=== PATIENT | female | born 1970 | race Caucasian/White ===

== ENCOUNTER 2017-07-15 12:02 | Emergency (ER) | payer SELFPAY ==
[2017-07-15 12:02] VITALS: BMI 25.7
[2017-07-15 12:27] VITALS: TEMP 97.6
--- NOTE | 2017-07-15 12:38 | C.PDOC ---
Time Seen by Provider: 07/15/17 12:32 Chief Complaint (Nursing): Headache Past Medical History Vital Signs: Last Vital Signs Temp 97.6 F 07/15/17 12:26 Pulse 87 07/15/17 12:26 Resp 20 07/15/17 12:26 BP 124/81 07/15/17 12:26 Pulse Ox 100 07/15/17 12:26 - Medical History PMH: Asthma, HTN Denies: Chronic Kidney Disease - [facility] Procedures LOCAL EXCIS BREAST LES (06/09/15) Family History: States: Unknown Family Hx - Social History Hx Alcohol Use: No Hx Substance Use: No - Immunization History Hx Tetanus Toxoid Vaccination: No Hx Influenza Vaccination: No Hx Pneumococcal Vaccination: No ED Course And Treatment O2 Sat by Pulse Oximetry: 100 Disposition - Disposition Forms: [employer] (Sudanese)
--- NOTE | 2017-07-15 12:44 | C.PDOC ---
History Of Present Illness 47 year old female presents to the ED with complaints of "head to toe pain" for three days. Patient denies fever, nausea, vomiting, diarrhea, chest pain, cough , or shortness of breath. Time Seen by Provider: 07/15/17 12:32 Chief Complaint (Nursing): Headache History Per: Patient History/Exam Limitations: no limitations Onset/Duration Of Symptoms: Days (3 days ) Current Symptoms Are (Timing): Still Present Recent travel outside of the [place]: No Additional History Per: Family Past Medical History Reviewed: Historical Data, Nursing Documentation, Vital Signs Vital Signs: Last Vital Signs Temp 97.6 F 07/15/17 12:26 Pulse 75 07/15/17 15:07 Resp 18 07/15/17 15:07 BP 120/72 07/15/17 15:07 Pulse Ox 100 07/15/17 15:31 - Medical History PMH: Asthma, HTN - [facility] Procedures LOCAL EXCIS BREAST LES (06/09/15) Family History: States: Unknown Family Hx - Social History Hx Alcohol Use: No Hx Substance Use: No - Immunization History Hx Tetanus Toxoid Vaccination: No Hx Influenza Vaccination: No Hx Pneumococcal Vaccination: No Review Of Systems Constitutional: Negative for: Fever, Chills Cardiovascular: Negative for: Chest Pain, Palpitations Respiratory: Negative for: Cough, Shortness of Breath Gastrointestinal: Positive for: Abdominal Pain. Negative for: Nausea, Vomiting , Diarrhea Musculoskeletal: Positive for: Back Pain, Leg Pain (bilateral leg pain ) Neurological: Positive for: Headache. Negative for: Numbness, Dizziness Physical Exam - Physical Exam Appears: Non-toxic, No Acute Distress Skin: Warm, Dry Head: Atraumatic, Normacephalic Eye(s): bilateral: Normal Inspection, PERRL, EOMI Oral Mucosa: Moist Neck: Supple Chest: Symmetrical, No Deformity Cardiovascular: Rhythm Regular, No Murmur Respiratory: Normal Breath Sounds, No Rales, No Rhonchi, No Wheezing Gastrointestinal/Abdominal: Soft, No Tenderness, No Distention, No Guarding, No Rebound Back: No CVA Tenderness, No Vertebral Tenderness, No Paraspinal Tenderness Extremity: Normal ROM, No Tenderness Neurological/Psych: Oriented x3, Normal Speech, Normal Cognition, Normal Motor, Normal Sensation Gait: Steady ED Course And Treatment O2 Sat by Pulse Oximetry: 100 (room air ) Pulse Ox Interpretation: Normal Progress Note: Patient was given Tylenol and Toradol. Reevaluation Time: 14:37 Reassessment Condition: Improved (CO TAILBONE PAIN. NO TRAUMA. NONTEND. LIMITED ROM BACK DUE TO PAIN. NO FEVER, NVD. NSAIDS, FU CLINIC) Disposition Counseled Patient/Family Regarding: Studies Performed, Diagnosis, Need For Followup, Rx Given - Disposition Referrals: Clinic,Med Surg [Primary Care Provider] - Disposition: HOME/ ROUTINE Disposition Time: 14:38 Condition: IMPROVED Prescriptions: Acetaminophen [Tylenol Extra Strength] 2 tab PO Q6 #30 tablet Cyclobenzaprine [Flexeril] 10 mg PO TID #15 tab Naproxen 500 mg PO BID #30 tab Instructions: Acute Low Back Pain (ED) Forms: [employer] Connect (Uzbek), Work Excuse Print Language: MALTESE - Clinical Impression Clinical Impression: Coccyx pain, Myalgia - Scribe Statement The provider has reviewed the documentation as recorded by the Olegarioibhaylee King All medical record entries made by the Olegarioibhaylee were at my direction and personally dictated by me. I have reviewed the chart and agree that the record accurately reflects my personal performance of the history, physical exam, medical decision making, and the department course for this patient. I have also personally directed, reviewed, and agree with the discharge instructions and disposition.
[2017-07-15 13:52] LABS: URINE BILIRUBIN NEGATIVE (NEGATIVE); URINE BLOOD NEGATIVE (NEGATIVE); URINE COLOR Colorless (YELLOW); URINE GLUCOSE (UA) NORMAL (Normal); URINE KETONE NEGATIVE (NEGATIVE); URINE LEUKOCYTE ESTERASE NEG Leu/uL (Negative); URINE PROTEIN NEGATIVE (NEGATIVE); URINE UROBILINOGEN NORMAL mg/dL (0.2-1.0)
[2017-07-15 15:07] VITALS: BP 120/72; PULSE 75; RESP 18
[2017-07-15 15:32] VITALS: O2SAT 100
== END 2017-07-15 15:08 | disposition home or self-care (01) ==
LOC: SUPCPDRO 12:02 → C.ER 12:02
DX: M79.1 Myalgia (principal); M53.3 Sacrococcygeal disorders, not elsewhere classified; I10 Essential (primary) hypertension

== ENCOUNTER 2018-03-13 08:00 | Emergency (ER) | payer OTHER ==
[2018-03-13 08:00] VITALS: BMI 25.7
[2018-03-13 08:21] VITALS: RESP 18
[2018-03-13] MEDS ORDERED: Sodium Chloride 0.9% 1,000 ML IV ONE (08:42)
[2018-03-13] MEDS ORDERED: DiphenhydrAMINE 50 mg/ml Inj IVP STA (08:44)
--- NOTE | 2018-03-13 08:44 | C.PDOC ---
History Of Present Illness 47 yo female come in for evaluation of suprapubic discomfort associated with discomfort on urination and intermittent sharp pain radiating to rectal area for past week. Otherwise, pt denies high fever, chills, recent illness, sore throat, CP, SOB, dyspnea, abd. pain, N/V/D, hematuria, vaginal irritation or discharges. Ambulate to Ed for evaluation, not in any apparent distress. Time Seen by Provider: 03/13/18 08:42 Chief Complaint (Nursing): Back Pain History Per: Patient Past Medical History Reviewed: Historical Data, Nursing Documentation, Vital Signs Vital Signs: Last Vital Signs Temp 98.2 F 03/13/18 08:16 Pulse 70 03/13/18 08:16 Resp 18 03/13/18 08:16 BP 176/81 H 03/13/18 08:16 Pulse Ox 100 03/13/18 10:38 - Medical History PMH: Asthma, HTN Denies: Chronic Kidney Disease Surgical History: Other Surgeries: Ovarian cyst - [facility] Procedures LOCAL EXCIS BREAST LES (06/09/15) Family History: States: Unknown Family Hx - Social History Hx Alcohol Use: No Hx Substance Use: No - Immunization History Hx Tetanus Toxoid Vaccination: No Hx Influenza Vaccination: No Hx Pneumococcal Vaccination: No Review Of Systems Except As Marked, All Systems Reviewed And Found Negative. Constitutional: Negative for: Fever, Chills ENT: Negative for: Throat Pain, Throat Swelling Cardiovascular: Negative for: Chest Pain Respiratory: Negative for: Cough, Shortness of Breath Gastrointestinal: Positive for: Abdominal Pain. Negative for: Diarrhea, Melena , Hematochezia, Hematemesis Genitourinary: Positive for: Dysuria, Frequency. Negative for: Hematuria, Vaginal Discharge, Vaginal Bleeding Musculoskeletal: Positive for: Back Pain. Negative for: Neck Pain Skin: Negative for: Rash Neurological: Negative for: Weakness, Incoordination, Headache, Dizziness Physical Exam - Physical Exam Appears: Well, Non-toxic, No Acute Distress Skin: Normal Color, Warm, Dry, No Rash Head: Normacephalic Eye(s): bilateral: PERRL Nose: No Flaring, No Discharge Oral Mucosa: Moist Tongue: Normal Appearing Teeth: Normal Dentition Throat: No Erythema, No Drooling Neck: Trachea Midline, Supple Cardiovascular: Rhythm Regular Respiratory: No Decreased Breath Sounds, No Accessory Muscle Use, No Stridor, No Wheezing Gastrointestinal/Abdominal: Soft, Tenderness (mod suprapubic), No Distention, No Guarding, No Rebound Back: No CVA Tenderness Pelvic: No Vaginal Bleeding, No Vaginal Discharge, No Cervical Motion Tenderness Extremity: Normal ROM, No Deformity, No Swelling Neurological/Psych: Oriented x3, Normal Speech, Normal Motor, Normal Sensation, Normal Reflexes ED Course And Treatment - Laboratory Results Urine POC: Negative O2 Sat by Pulse Oximetry: 100 Pulse Ox Interpretation: Normal - Other Rad Abd xray X-Ray: Read By Radiologist Interpretation: pprover : Lloyd Purvis MD. Approver2 : Report Date : 03/13/2018 10:20:29. My Comment : . HISTORY: abd. pain. COMPARISON: No prior. FINDINGS: BOWEL: Nonobstructive bowel gas pattern. Moderate fecal loading seen at the proximal: And minimally at the remainder of the large bowel. No free intraperitoneal gas identified. No suspicious intra-abdominal calcifications. BONES: Normal. OTHER FINDINGS: None. IMPRESSION: Nonobstructive bowel gas pattern. No free intraperitoneal gas. - CT Scan/US Transvaginal US Other Rad Studies (CT/US): Radiology Report Reviewed CT/US Interpretation: [employer] Commander : Guanako Mae MD. Approver2 : Report Date : 03/13/2018 12:57:56. My Comment : . Pelvic ultrasound. History: Pelvic pain. Comparison: None available. Technique: Real-time sonography was performed through the pelvis utilizing transabdominal and transvaginal techniques. Findings: Uterus: 11.7 x 4.9 x 5.5 centimeters. Heterogeneous echotexture. Anteverted. Nabothian cysts noted at the level of the cervix. Prominent endometrium measuring up to 1.1 centimeters. Right ovary: 3.9 x 1.9 x 2.4 centimeters. Normal flow. Left ovary: Difficult to visualize. Approximately 3.4 x 2.9 x 2.8 centimeters. Normal flow. Impression: Technically limited study. Limited evaluation of the left ovary which appears grossly preserved. Prominent endometrium measuring 1.1 centimeters. Clinical correlation. Nabothian cysts noted at the level of the cervix. Heterogeneous echotexture of the uterus. Progress Note: On re-evaluation, pt is afebrile, hemodynamiclay stable. Non- toxic, tolerate Po well in ED. ENT: no acute findings. Abd: benign, (-) guarding, (-) rebound. back: (-) CVA tenderness. neuorlogicaly intact. UA results review - normal. UCx- penidng. Transvaginal US review (-) acute findings. Abd xray, mild compstipation. Pt has clinical findings c/w suprapubic tenderness, ovarian cyst. constipation Pt advised. ref. to F/u with PMD in 2-3 days for re-eavl. return to Ed if any worsening or new changes. Disposition Counseled Patient/Family Regarding: Diagnosis, Need For Followup, Rx Given - Disposition Referrals: [facility] [Outside] [facility] [Outside] Disposition: HOME/ ROUTINE Disposition Time: 12:30 Condition: STABLE Additional Instructions: Encourage fluids take medication as prescribed Follow up with PMD and AGRICULTURE MECHANIC in 2-3 days for re-evaluation. return to ED if any worsening or new changes. Prescriptions: Ibuprofen [Motrin Tab] 600 mg PO BID #20 tab Polyethylene Glycol 3350 [Miralax] 17 gm PO DAILY #1 bottle Instructions: Ovarian Cysts, Constipation, Adult (DC) Forms: [employer] (Faroese) Print Language: QATARI - Clinical Impression Clinical Impression: Constipation, Suprapubic abdominal pain, Ovarian cyst
[2018-03-13 09:04] LABS: HCG,QUALITATIVE URINE NEGATIVE (NEGATIVE)
[2018-03-13 09:05] LABS: SQUAMOUS EPITHIAL 1 /hpf (0-5); URINE BILIRUBIN NEGATIVE (NEGATIVE); URINE BLOOD NEGATIVE (NEGATIVE); URINE CLARITY Clear (Clear); URINE COLOR Straw (YELLOW); URINE GLUCOSE (UA) NORMAL (Normal); URINE LEUKOCYTE ESTERASE NEG Leu/uL (Negative); URINE PROTEIN NEGATIVE (NEGATIVE); URINE UROBILINOGEN NORMAL mg/dL (0.2-1.0)
--- NOTE | 2018-03-13 10:22 | RAD ---
HISTORY: abd. pain COMPARISON: No prior. FINDINGS: BOWEL: Nonobstructive bowel gas pattern. Moderate fecal loading seen at the proximal: And minimally at the remainder of the large bowel. No free intraperitoneal gas identified. No suspicious intra-abdominal calcifications. BONES: Normal. OTHER FINDINGS: None. IMPRESSION: Nonobstructive bowel gas pattern. No free intraperitoneal gas.
--- NOTE | 2018-03-13 12:59 | US ---
Pelvic ultrasound History: Pelvic pain. Comparison: None available. Technique: Real-time sonography was performed through the pelvis utilizing transabdominal and transvaginal techniques. Findings: Uterus: 11.7 x 4.9 x 5.5 centimeters. Heterogeneous echotexture. Anteverted. Nabothian cysts noted at the level of the cervix. Prominent endometrium measuring up to 1.1 centimeters. Right ovary: 3.9 x 1.9 x 2.4 centimeters. Normal flow. Left ovary: Difficult to visualize. Approximately 3.4 x 2.9 x 2.8 centimeters. Normal flow. Impression: Technically limited study. Limited evaluation of the left ovary which appears grossly preserved. Prominent endometrium measuring 1.1 centimeters. Clinical correlation. Nabothian cysts noted at the level of the cervix. Heterogeneous echotexture of the uterus.
[2018-03-13 13:49] VITALS: BP 137/77; PULSE 77; TEMP 98; O2SAT 99
== END 2018-03-13 13:49 | disposition home or self-care (01) ==
LOC: C.ER 08:00
DX: K59.00 Constipation, unspecified (principal); N83.209 Unspecified ovarian cyst, unspecified side; R10.2 Pelvic and perineal pain; I10 Essential (primary) hypertension

== ENCOUNTER 2019-02-07 02:07 | Emergency (ER) | payer OTHER ==
[2019-02-07 02:07] VITALS: BMI 25.7
[2019-02-07 02:20] VITALS: BP 167/84; RESP 16; TEMP 97.9
[2019-02-07 03:07] LABS: SQUAMOUS EPITHIAL 1 /hpf (0-5); URINE BILIRUBIN NEGATIVE (NEGATIVE); URINE BLOOD NEGATIVE (NEGATIVE); URINE CLARITY Clear (Clear); URINE COLOR Straw (YELLOW); URINE GLUCOSE (UA) NORMAL (Normal); URINE LEUKOCYTE ESTERASE NEG Leu/uL (Negative); URINE PROTEIN NEGATIVE (NEGATIVE); URINE UROBILINOGEN NORMAL mg/dL (0.2-1.0)
[2019-02-07 03:27] LABS: HCG,QUALITATIVE URINE NEGATIVE (NEGATIVE)
--- NOTE | 2019-02-07 03:33 | C.PDOC ---
History Of Present Illness 48 year old female presents to the ED c/o bilateral lower back pain radiating to her buttock and legs. Patient reports no relief from Tylenol. Patient denies trauma, fever, chills, headache, nausea, vomit, diarrhea, rash, dysuria, hematuria, saddle anesthesia, weakness, numbness, bowel incontinence. Time Seen by Provider: 02/07/19 02:31 Chief Complaint (Nursing): Back Pain History Per: Patient History/Exam Limitations: no limitations Onset/Duration Of Symptoms: Days Current Symptoms Are (Timing): Still Present Quality Of Discomfort: "Pain" Previous Symptoms: Back Pain Exacerbating Factor(s): Movement Recent travel outside of the [place]: No Additional History Per: Patient Past Medical History Reviewed: Historical Data, Nursing Documentation, Vital Signs Vital Signs: Last Vital Signs Temp 97.9 F 02/07/19 02:17 Pulse 62 02/07/19 02:17 Resp 16 02/07/19 02:17 BP 167/84 H 02/07/19 02:17 Pulse Ox 97 02/07/19 02:17 - Medical History PMH: Asthma, HTN Denies: Chronic Kidney Disease Surgical History: - [facility] Procedures LOCAL EXCIS BREAST LES (06/09/15) Family History: States: Unknown Family Hx - Social History Hx Alcohol Use: No Hx Substance Use: No - Immunization History Hx Tetanus Toxoid Vaccination: No Hx Influenza Vaccination: No Hx Pneumococcal Vaccination: No Review Of Systems Constitutional: Negative for: Fever, Chills Cardiovascular: Negative for: Chest Pain Respiratory: Negative for: Shortness of Breath Gastrointestinal: Negative for: Nausea, Vomiting, Abdominal Pain Genitourinary: Negative for: Dysuria, Hematuria Musculoskeletal: Positive for: Back Pain Skin: Negative for: Rash Neurological: Negative for: Weakness, Numbness Physical Exam - Physical Exam Appears: Non-toxic, No Acute Distress Skin: Normal Color, Warm, Dry Head: Atraumatic, Normacephalic Eye(s): bilateral: Normal Inspection Neck: Normal ROM, Supple Chest: Symmetrical Cardiovascular: Rhythm Regular Respiratory: Normal Breath Sounds, No Rales, No Rhonchi, No Wheezing Gastrointestinal/Abdominal: Soft, No Tenderness, No Guarding, No Rebound Back: No Vertebral Tenderness, Paraspinal Tenderness (minimal paralumbar), No Straight Leg Raising Extremity: Normal ROM, No Tenderness, No Swelling Neurological/Psych: Oriented x3, Normal Speech, Normal Cognition Gait: Steady ED Course And Treatment - Laboratory Results Lab Results: Urine Color Straw (YELLOW) 02/07/19 02:56 Urine Clarity Clear (Clear) 02/07/19 02:56 Urine pH 5.0 (5.0-8.0) 02/07/19 02:56 Ur Specific Humphreys 1.009 (1.003-1.030) 02/07/19 02:56 Urine Protein Negative mg/dL (NEGATIVE) 02/07/19 02:56 Urine Glucose (UA) Normal mg/dL (Normal) 02/07/19 02:56 Urine Ketones Negative mg/dL (NEGATIVE) 02/07/19 02:56 Urine Blood Negative (NEGATIVE) 02/07/19 02:56 Urine Nitrate Negative (NEGATIVE) 02/07/19 02:56 Urine Bilirubin Negative (NEGATIVE) 02/07/19 02:56 Urine Urobilinogen Normal mg/dL (0.2-1.0) 02/07/19 02:56 Ur Leukocyte Esterase Neg Fabiana/uL (Negative) 02/07/19 02:56 Urine WBC (Auto) 1 /hpf (0-5) 02/07/19 02:56 Urine RBC (Auto) 1 /hpf (0-3) 02/07/19 02:56 Ur Squamous Epith Cells 1 /hpf (0-5) 02/07/19 02:56 Urine HCG, Qual Negative (NEGATIVE) 02/07/19 02:56 Urine HCG, Qual Negative (NEGATIVE) 02/07/19 02:56 O2 Sat by Pulse Oximetry: 97 (ON RA) Pulse Ox Interpretation: Normal Progress Note: Plan: - Flexeril 10 mg PO. - Toradol 30 mg IM. Patient reports improvement after medications were given. Patient seen ambulating in the ED without difficulty. Patient advised to follow up with PMD. Disposition Counseled Patient/Family Regarding: Diagnosis, Need For Followup, Rx Given - Disposition Referrals: [facility] [Outside] Disposition: HOME/ ROUTINE Disposition Time: 03:33 Condition: STABLE Additional Instructions: Take medications as directed Follow up with PMD or in clinic Return to ER if weakness, numbness, incontinence or worse Prescriptions: Cyclobenzaprine [Cyclobenzaprine HCl] 10 mg PO HS #10 tab Ibuprofen [Motrin] 600 mg PO Q6H #24 tab Instructions: Low Back Pain (DC) Forms: [employer] (Bulgarian) Print Language: [id number] - Clinical Impression Clinical Impression: Low back strain - PA / SYSTEM TRAINER / Resident Statement MD/DO has reviewed & agrees with the documentation as recorded. - Scribe Statement The provider has reviewed the documentation as recorded by the Scribe Guillermo Hightower All medical record entries made by the Olegarioibe were at my direction and personally dictated by me. I have reviewed the chart and agree that the record accurately reflects my personal performance of the history, physical exam, medical decision making, and the department course for this patient. I have also personally directed, reviewed, and agree with the discharge instructions and disposition.
[2019-02-07 03:50] VITALS: PULSE 68
[2019-02-07 04:55] VITALS: O2SAT 97
== END 2019-02-07 03:50 | disposition home or self-care (01) ==
LOC: C.ER 02:07
DX: S39.012A Strain of muscle, fascia and tendon of lower back, initial encounter (principal); X58.XXXA Exposure to other specified factors, initial encounter; I10 Essential (primary) hypertension
CPT/HCPCS: 81001; 84703; 96372; 99283; J1885